=== PATIENT | male | born 1970 | race Caucasian/White ===

== ENCOUNTER → 2016-12-15 | Outpatient (CLI) | payer OTHER ==
[2016-12-15 08:35] LABS: ALBUMIN SERUM 4.9 g/dL (3.5-5.0); BILIRUBIN,TOTAL 0.6 mg/dL (0.2-2.0); CALCIUM SERUM 10.1 mg/dL (8.4-10.2); GLOM FILT RATE Estimated 91.1 mL/min (>60); POTASSIUM 4.5 mmol/L (3.5-5.1); PROTEIN TOTAL SERUM 8.2 g/dL (6.0-8.3)
[2016-12-15 12:54] LABS: TESTOSTERONE TOTAL 230.28 ng/dL (17-781)
== END | disposition home or self-care (01) ==
LOC: SLAB 07:41
PROVIDERS: Internal Medicine
DX: J30.9 Allergic rhinitis, unspecified (principal); F41.9 Anxiety disorder, unspecified; F32.9 Major depressive disorder, single episode, unspecified; E11.9 Type 2 diabetes mellitus without complications; M10.9 Gout, unspecified; R12 Heartburn; E78.5 Hyperlipidemia, unspecified; I10 Essential (primary) hypertension; E29.1 Testicular hypofunction; E66.9 Obesity, unspecified; G47.33 Obstructive sleep apnea (adult) (pediatric); M62.830 Muscle spasm of back; G62.9 Polyneuropathy, unspecified; J06.9 Acute upper respiratory infection, unspecified; E53.8 Deficiency of other specified B group vitamins; Z28.21 Immunization not carried out because of patient refusal
CPT/HCPCS: 36415; 80053; 82306; 84403